=== PATIENT | female | born 1970 | race Caucasian/White ===

== ENCOUNTER 2017-03-02 09:06 | Day surgery (SDC) | payer OTHER ==
[2017-03-01 12:36] LABS: HEMATOCRIT 45.9 % (34.6-47.8); HEMOGLOBIN 15.6 g/dL (11.7-16.4)
[2017-03-01 12:49] LABS: ASPARTATE AMINO TRANSFERASE 69 U/L (15-37); BLOOD UREA NITROGEN 9 mg/dL (7-18)
[~2017-03-02] VITALS: Ht 149.9 cm; Wt 88.0 kg
[~2017-03-02 09:06] MED LIST changes: +BUPIVACAINE/PF 0.5% ONE; +EPINEPHRINE 1 MG/ML, 1ML ONE; -LIDOCAINE 1%, 20ML ONE; +LIDOCAINE-MPF 2% ,5ML ONE
[2017-03-02 09:15] VITALS: BP 139/85
[2017-03-02] MEDS ORDERED: FENTANYL PF 100 MCG/2ML ONE (09:18)
[2017-03-02] MEDS ORDERED: MIDAZOLAM 1 MG/ML, 2ML ONE (09:18)
[2017-03-02] MEDS ORDERED: LIDOCAINE 1%, 2ML ONE (09:20)
[2017-03-02] MEDS ORDERED: LACTATED RINGERS 1,000 ML IV SCH (09:21)
[2017-03-02] MEDS ORDERED: ONDANSETRON 2MG/ML, 2ML ONE (09:25)
[2017-03-02] MEDS ORDERED: DEXAMETHASONE 4 MG/ML, 1ML ONE (09:25)
[2017-03-02] MEDS ORDERED: CEFAZOLIN 1,000 MG ONE (09:25)
[2017-03-02] MEDS ORDERED: PROPOFOL 10 MG/ML, 20ML ONE (09:25)
[2017-03-02] MEDS ORDERED: ROCURONIUM 10 MG/ML ONE (09:25)
[2017-03-02] MEDS ORDERED: SUCCINYLCHOLINE 20 MG/ML, 10ML ONE (09:25)
[2017-03-02] MEDS ORDERED: LIDOCAINE 1%, 2ML SQ PRN (09:30)
[2017-03-02] MEDS ORDERED: ONDANSETRON 2MG/ML, 2ML IVPush PRN ×2 (10:00→11:00)
[2017-03-02] MEDS ORDERED: FENTANYL PF 100 MCG/2ML IV PRN (10:00)
[2017-03-02] MEDS ORDERED: METOCLOPRAMIDE 5 MG/ML, 2ML IV PRN (10:00)
[2017-03-02] MEDS ORDERED: LABETALOL 5MG/ML, 20ML IV PRN (10:00)
[2017-03-02] MEDS ORDERED: OXYcodone 5 MG/5 ML ORAL.SOL UDC PO PRN (10:00)
[2017-03-02] MEDS ORDERED: hydrALAzine 20 MG/ML, 1ML IV PRN (10:00)
[2017-03-02] MEDS ORDERED: ACETAMINOPHEN 325 MG TABLET PO PRN (10:00)
[2017-03-02] MEDS ORDERED: HYDROmorphone 1 MG/ML, 1ML IV PRN (10:00)
[2017-03-02] MEDS ORDERED: morphine SULFATE 10 MG/ML, 1ML IVPush PRN (11:00)
[2017-03-02] MEDS ORDERED: OXYcodone 5 MG/5 ML ORAL.SOL UDC ONE (11:29)
[2017-03-02] MEDS ORDERED: ACETAMINOPHEN 650 MG/20.3 ML UDC ONE (11:29)
== END 2017-03-02 12:50 ==
LOC: OUT 09:06
PROVIDERS: ATTEND Surgery
DX: N62 Hypertrophy of breast (principal); I10 Essential (primary) hypertension; E66.9 Obesity, unspecified; Z68.39 Body mass index [BMI] 39.0-39.9, adult
CPT/HCPCS: 19125; 36415; 76098; 80053; 85025; J0171; J0330; J0690; J1100; J2250; J2405; J2704; J3010; J3490; J7120

== ENCOUNTER → 2017-03-02 | Outpatient (CLI) | payer OTHER ==
[~2017-03-02] MED LIST: ENAL20TA PO; LIDOCAINE 1%, 20ML ONE; MELO7.5T31 PO; PARO20TA4 PO
== END | disposition home or self-care (01) ==
LOC: MERGE 07:30 → CFH 07:51
PROVIDERS: ATTEND Surgery
DX: N63 Unspecified lump in breast (principal)
CPT/HCPCS: 19281; 88307; J3490

== ENCOUNTER 2017-04-01 21:23 | Emergency (ER) | payer OTHER ==
[~2017-04-01] VITALS: Ht 149.9 cm; Wt 89.0 kg
[~2017-04-01 21:23] MED LIST changes: -BUPIVACAINE/PF 0.5% ONE; -EPINEPHRINE 1 MG/ML, 1ML ONE; -LIDOCAINE-MPF 2% ,5ML ONE
[2017-04-01 21:31] VITALS: BP 159/86
== END 2017-04-01 22:36 | disposition home or self-care (01) ==
LOC: ED 22:30
DX: L03.032 Cellulitis of left toe (principal); I10 Essential (primary) hypertension
CPT/HCPCS: 99283

== ENCOUNTER → 2017-10-18 | Outpatient (CLI) | payer OTHER | END | disposition home or self-care (01) | LOC: CFH 13:12 | PROVIDERS: ATTEND Surgery | DX: D48.62 Neoplasm of uncertain behavior of left breast (principal) | CPT/HCPCS: 77066 ==

== ENCOUNTER 2019-08-08 19:14 | Emergency (ER) | payer OTHER ==
[~2019-08-08] VITALS: Ht 149.9 cm; Wt 91.9 kg
[2019-08-08 19:16] VITALS: BP 136/61
--- NOTE | 2019-08-08 19:45 | NUR ---
Provider @ bedside, pt primarily amharic speaking, daughter @ bedside to interpret, assessment completed, skin pwd and intact, A&ox3, denies further needs
== END 2019-08-08 20:01 | disposition home or self-care (01) ==
LOC: ED 19:55
DX: Z48.01 Encounter for change or removal of surgical wound dressing (principal); I10 Essential (primary) hypertension
CPT/HCPCS: 99281